=== PATIENT | female | born 1970 | race Caucasian/White ===

== ENCOUNTER 2018-02-02 01:33 | Emergency (ER) | payer OTHER ==
[~2018-02-02] VITALS: Ht 182.9 cm; Wt 103.4 kg
[~2018-02-02 01:33] MED LIST: BACLOFEN 10MG T10 MG PO; DAZIDOX10 MG PO; FLEXERIL PO; IBUPROFEN PO; MEDROLDOSEPACK PO; NEURONTIN 300300 M1 PO; NORCO 5-325 TA1 EACH PO; OXYCONTIN15 MG PO; PERCOCET 5-3251 EACH PO; PREMARIN PO; PREMARIN1.25 MG PO; PROTONIX 20 MG20 MG PO; PROTONIX40 M2 PO; TIZANIDINE HCL4 M1 PO; TRAMADOL 50 MG50 MG PO; ULTRACET TABLE1 EACH PO; VALIUM5 MG PO; ZANAFLEX4 M1 PO
[2018-02-02] MEDS ORDERED: NORCO 5-325 TA1 EACH (01:44)
[2018-02-02] MEDS ORDERED: ROBAXIN 750 MG750 M1 (01:45)
[2018-02-02 03:07] VITALS: BP 95/63
== END 2018-02-02 03:09 | disposition home or self-care (01) ==
LOC: M.ERS 01:33
DX: S01.01XA Laceration without foreign body of scalp, initial encounter (principal); M79.671 Pain in right foot; K21.9 Gastro-esophageal reflux disease without esophagitis; Z88.2 Allergy status to sulfonamides; Z88.1 Allergy status to other antibiotic agents; Z88.5 Allergy status to narcotic agent; Z88.8 Allergy status to other drugs, medicaments and biological substances; Z90.710 Acquired absence of both cervix and uterus; Z90.49 Acquired absence of other specified parts of digestive tract; W18.39XA Other fall on same level, initial encounter; Y93.89 Activity, other specified; Y92.89 Other specified places as the place of occurrence of the external cause; Y99.8 Other external cause status

== ENCOUNTER 2018-02-15 11:49 | Emergency (ER) | payer OTHER ==
[~2018-02-15] VITALS: Ht 182.9 cm; Wt 55.8 kg
[~2018-02-15 11:49] MED LIST changes: +NORCO 5-325 TA1 EACH; +ROBAXIN 750 MG750 M1
[2018-02-15 11:55] VITALS: BP 122/84
== END 2018-02-15 12:06 | disposition home or self-care (01) ==
LOC: M.ERS 11:49
DX: S01.01XD Laceration without foreign body of scalp, subsequent encounter (principal); K21.9 Gastro-esophageal reflux disease without esophagitis; Z90.49 Acquired absence of other specified parts of digestive tract; Z90.710 Acquired absence of both cervix and uterus; Z88.5 Allergy status to narcotic agent; Z88.8 Allergy status to other drugs, medicaments and biological substances; Z88.2 Allergy status to sulfonamides; X58.XXXD Exposure to other specified factors, subsequent encounter